=== PATIENT | female | born 1985 | race Caucasian/White ===

== ENCOUNTER → 2018-11-21 | Outpatient (CLI) | payer OTHER ==
--- NOTE | 2018-11-21 10:03 | REP ---
Chest two views HISTORY: Cough Comparison: None Patchy density is present in the left lower lobe consistent with atelectasis or infiltrate. The right lung is clear. The heart is normal in size. The pulmonary vasculature is normal in appearance. The bony structure is intact. IMPRESSION: Left lower lobe atelectasis or infiltrate. Electronically Signed by Bill Valente MD 11/21/2018 09:54 A
== END ==
LOC: M LRY 09:41
PROVIDERS: ATTEND Physician Assistant
DX: J98.11 Atelectasis (principal); R05 Cough

== ENCOUNTER → 2023-12-22 | Outpatient (CLI) | payer OTHER | LOC: M CARPUL 10:53 | PROVIDERS: ATTEND Internal Medicine | DX: R01.1 Cardiac murmur, unspecified (principal) ==

== ENCOUNTER → 2024-03-09 | Outpatient (CLI) | payer OTHER | LOC: M CARPUL 10:42 | PROVIDERS: ATTEND Internal Medicine | DX: J45.998 Other asthma (principal) ==

== ENCOUNTER 2025-04-25 11:35 | Day surgery (SDC) | payer OTHER ==
[~2025-04-25] VITALS: Ht 152.4 cm; Wt 60.0 kg
[~2025-04-25 11:35] MED LIST: BUTA-198 PO; COLLAGEN SUPPLEMENT PO; CYCL5TAB4 PO; PROP40TA62 PO; TIRZ5PEN3 SC
[2025-04-25] MEDS ORDERED: LR 1,000 ML IV SCH (11:40)
[2025-04-25] MEDS ORDERED: dexAMETHasone 4 MG/ML 1 ML VIAL As Ordered ONE (11:49)
[2025-04-25] MEDS ORDERED: SUGAMMADEX SODIUM 500 MG/5 ML VIAL As Ordered ONE (11:49)
[2025-04-25] MEDS ORDERED: LIDOCAINE 2% 100 MG/5 ML SDV (FOR ANES.) As Ordered ONE (11:49)
[2025-04-25] MEDS ORDERED: KETOROLAC 30 MG/ML 1 ML VIAL As Ordered ONE (11:49)
[2025-04-25] MEDS ORDERED: propofoL 200 MG/20 ML VIAL As Ordered ONE (11:49)
[2025-04-25] MEDS ORDERED: ONDANSETRON 4MG 2ML VIAL As Ordered ONE (11:50)
[2025-04-25] MEDS ORDERED: ROCURONIUM BROMIDE 50MG/5ML VIAL As Ordered ONE (11:50)
[2025-04-25 12:16] LABS: HEMATOCRIT 36.4 % (36.0-47.0); HEMOGLOBIN 12.3 g/dl (12.0-15.5); MEAN CORPUSCULAR HEMOGLOBIN 31.1 pg (27.0-33.0); MEAN CORPUSCULAR HGB CONC 33.8 g/dl (32.0-36.5); MEAN CORPUSCULAR VOLUME 91.9 fl (80.0-96.0); PLATELET COUNT, AUTOMATED 172 10^3/uL (150-450); RED BLOOD COUNT 3.96 10^6/uL (4.00-5.40); WHITE BLOOD COUNT 4.3 10^3/uL (4.0-10.0)
[2025-04-25] MEDS ORDERED: MIDAZOLAM INJ 2 MG/2 ML VIAL As Ordered ONE (12:21)
[2025-04-25] MEDS ORDERED: fentaNYL 100 MCG/2 ML INJECTION As Ordered ONE (12:21)
[2025-04-25] MEDS: ceFAZolin SOD 2 GM IV ONCE IV ONE (12:55)
[2025-04-25] MEDS: BUPIVACAINE HCL 0.25% As Ordered ONE (12:56)
[2025-04-25] MEDS ORDERED: ACETAMINOPHEN 1000MG/100ML IV BAG As Ordered ONE (13:11)
[2025-04-25] MEDS: [UNRECOGNIZED DRUG - OTHER] As Ordered ONE (14:35)
[2025-04-25] MEDS: BUPIVACAINE LIPOSOME As Ordered ONE (14:35)
[2025-04-25] MEDS: BUPIVACAINE As Ordered ONE (14:35)
[2025-04-25] MEDS ORDERED: MEPERIDINE 25 MG/ML 1 ML VIAL IV PRN (14:50)
[2025-04-25] MEDS: ONDANSETRON 4MG 2ML VIAL IV PRN (14:55)
[2025-04-25] MEDS: fentaNYL 100 MCG/2 ML INJECTION IV PRN (15:06)
[2025-04-25] MEDS: METOCLOPRAMIDE INJ 10 MG/2 ML VIAL IV PRN (15:06)
[2025-04-25] MEDS ORDERED: NS (Normal Saline) 0.9% 1,000 ML IV SCH (15:25)
[2025-04-25] MEDS ORDERED: PERCOCET 5MG/325MG TAB PO PRN (15:25)
[2025-04-25] MEDS: HYDROMORPHONE HCL 0.5 MG/0.5 ML SYRINGE IV PRN (15:27)
[2025-04-25] MEDS: diphenhydrAMINE 50 MG/ML VIAL IV PRN (15:43)
[2025-04-25] MEDS: oxyCODONE 5MG TAB PO PRN (16:41)
[2025-04-25 17:02] VITALS: BP 127/70; TEMP 97.7; O2SAT 98
== END 2025-04-25 17:25 | disposition home or self-care (01) ==
LOC: M SDC 11:35
PROVIDERS: ATTEND Surgery
DX: K43.2 Incisional hernia without obstruction or gangrene (principal); Z79.899 Other long term (current) drug therapy; F41.9 Anxiety disorder, unspecified; F32.A Depression, unspecified
CPT/HCPCS: 36415; 49593; 81025; 85027; C1765; C1781; J0131; J0665; J0666; J0690; J1100; J1171; J1200; J1885; J2250; J2405; J2765; J3010; S2900